=== PATIENT | female | born 1985 | race Two or more races ===

== ENCOUNTER 2022-03-27 04:23 | Inpatient (IN) ==
[2022-03-27] MEDS ORDERED: ePHEDrine 50 MG/ML VIAL IV PRN (04:35)
[2022-03-27] MEDS ORDERED: ONDANSETRON 4 MG/2 ML VIAL IV ONE (04:35)
[2022-03-27] MEDS ORDERED: diphenhydrAMINE 50 MG/1 ML VIAL IV PRN ×2 (04:35)
[2022-03-27] MEDS ORDERED: PROMETHAZINE 25 MG/1 ML VIAL IM ONE (04:35)
[2022-03-27] MEDS ORDERED: NALOXONE 0.4 MG/ML VIAL IV PRN (04:35)
[2022-03-27] MEDS ORDERED: LACTATED RINGERS 1,000 ML IV ONE (04:35)
[2022-03-27] MEDS ORDERED: hydrOXYzine HCL 25 MG/1 ML VIAL IM PRN (04:35)
[2022-03-27] MEDS ORDERED: TRANEXAMIC ACID 1,000 MG in SODIUM CHLORIDE 0.9% 100 ML IV PRN (04:36)
[2022-03-27] MEDS ORDERED: ONDANSETRON 4 MG/2 ML VIAL IV PRN (04:36)
[2022-03-27] MEDS ORDERED: METHYLERGONOVINE 0.2 MG/1 ML AMP IM PRN (04:36)
[2022-03-27] MEDS ORDERED: OXYTOCIN/LR 20 UNIT/1,000 ML BAG IV PRN (04:36)
[2022-03-27] MEDS ORDERED: miSOPROStoL 200 MCG TABLET RECTAL PRN (04:36)
[2022-03-27] MEDS ORDERED: CARBOPROST TROMETHAMINE 250 MCG/ML AMP IM PRN (04:36)
[2022-03-27] MEDS ORDERED: BUTORPHANOL 1 MG/ML VIAL IV PRN (04:36)
[2022-03-27] MEDS ORDERED: CITRIC ACID/SODIUM CITRATE 30 ML UDCUP ONE (04:38)
[2022-03-27] MEDS ORDERED: FAMOTIDINE 20 MG/2 ML VIAL IV ONE (04:40)
[2022-03-27] MEDS ORDERED: LACTATED RINGERS 1,000 ML IV SCH ×2 (05:00)
[2022-03-27] MEDS ORDERED: fentaNYL 2 MCG/ROPIV 0.2% EPID 100 ML EPIDURAL SCH (05:00)
[2022-03-27 05:05] LABS: Basophils % 0.2 % (0.0-0.8); Cord Venous Blood PCO2 39.1 MMHG; Cord Venous Blood PO2 19.2; Eosinophils # 0.1 10*3/uL (0.0-0.87); Eosinophils % 0.5 % (0.00-10.9); Hematocrit 37.6 VOL% (35.7-47.0); Immature Granulocytes % 0.5 %; Immature Granulocytes Absolute 0.05 #; Lymphocytes # 3.4 10*3/uL (1.4-4.0); Mean Corpuscular HGB Conc 34.6 GM/DL (32-36); Mean Corpuscular Volume 81.6 FL (87-102); Mean Platelet Volume 10.2 FL (9.6-12.0); Monocytes # 0.9 10*3/uL (0.11-0.8); Monocytes % 8.9 % (1.7-12.7); Neutrophils % 54.9 % (38.7-73.9); Platelet Count 187 T/CUMM (130-400); Red Blood Count 4.61 MC/CUMM (3.8-5.5); Red Cell Distribution Width 13.6 % (9.3-17.3); White Blood Count 9.7 T/CUMM (4-12)
[2022-03-27 05:24] LABS: Alanine Aminotransferase 19 U/L (13-56); Albumin 2.7 G/DL (3.4-5.0); Alkaline Phosphatase 97 U/L (45-117); Aspartate Amino Transferase 17 U/L (0-37); Bilirubin,Total < 0.39 MG/DL (0.20-1.00); Blood Urea Nitrogen 10 MG/DL (7-18); Carbon Dioxide 16 MMOL/L (21-32); Chloride 109 MMOL/L (98-107); Glucose 105 MG/DL (74-106); Osmolality,Calculated 275.5 MOS/KG (273-304); Potassium 3.6 MMOL/L (3.5-5.1); Sodium 139 MMOL/L (136-145); Total Protein 6.9 G/DL (6.4-8.2)
[2022-03-27 05:33] LABS: Mucus,Urine Occasional /LPF (Occasional); RBC,Urine 6 /HPF (0-4)
[2022-03-27 05:35] LABS: Bilirubin,Urine Negative (Negative); Blood, Urine Small mg/dL (Negative); Glucose,Urine (UA) Negative (Negative); Ketones,Urine 80 mg/dL (Negative); Nitrite,Urine Negative (Negative); Protein,Urine Negative (Negative); Urine Appearance Clear (Clear); Urine Color Yellow (Yellow); Urine Specific Gravity 1.025 (1.001-1.035); Urine Urobilinogen 0.2 eU/dL (<2.0)
[2022-03-27] MEDS ORDERED: BISACODYL 10 MG SUPP RECTAL PRN (05:43)
[2022-03-27] MEDS ORDERED: MEASLES/MUMPS/RUBELLA VACCINE 0.5 ML VIAL SUBCUT ONE (05:43)
[2022-03-27] MEDS ORDERED: OXYTOCIN/LR 20 UNIT/1,000 ML BAG IV ONE (05:43)
[2022-03-27] MEDS ORDERED: oxyCODONE/ACETAMINOPHEN 5-325 MG TABLET PO PRN (05:43)
[2022-03-27] MEDS ORDERED: ACETAMINOPHEN 325 MG TABLET PO PRN (05:43)
[2022-03-27] MEDS ORDERED: HYDROCORTISONE 2.5% RECTAL CREAM 30 GM TUBE TOP PRN (05:43)
[2022-03-27] MEDS ORDERED: WITCH HAZEL PADS 100/JAR TOP PRN (05:43)
[2022-03-27] MEDS ORDERED: RHO(D) IMMUNE GLOBULIN 300 MCG SYRINGE IM ONE (05:43)
[2022-03-27] MEDS ORDERED: BENZOCAINE 20%/MENTHOL 0.5% SPRAY 56 GM CAN TOP PRN (05:43)
[2022-03-27] MEDS ORDERED: LANOLIN 50% CREAM 0.3 OZ TUBE TOP PRN (05:43)
[2022-03-27] MEDS ORDERED: DIPH/TET/ACEL PERT BOOSTER VACCINE 0.5 ML VIAL IM ONE (05:43)
[2022-03-27] MEDS: DOCUSATE SODIUM 100 MG CAPSULE PO SCH (11:14)
[2022-03-27] MEDS: oxyCODONE/ACETAMINOPHEN 5-325 MG TABLET PO PRN (12:29)
[2022-03-27] MEDS: IBUPROFEN 800 MG TABLET PO PRN (12:30)
[2022-03-28] MEDS: IBUPROFEN 800 MG TABLET PO PRN ×4 (01:10→22:38)
[2022-03-28] MEDS: DOCUSATE SODIUM 100 MG CAPSULE PO SCH ×3 (01:17→21:02)
[2022-03-28] MEDS: oxyCODONE/ACETAMINOPHEN 5-325 MG TABLET PO PRN ×2 (02:39→08:55)
[2022-03-28 06:46] LABS: Basophils % 0.3 % (0.0-0.8); Eosinophils # 0.1 10*3/uL (0.0-0.87); Eosinophils % 1.1 % (0.00-10.9); Hematocrit 32.7 VOL% (35.7-47.0); Hemoglobin 11.1 GM/DL (12.0-16.0); Immature Granulocytes % 0.4 %; Immature Granulocytes Absolute 0.03 #; Lymphocytes # 1.6 10*3/uL (1.4-4.0); Lymphocytes % 22.2 % (21.3-54.2); Mean Corpuscular HGB Conc 33.9 GM/DL (32-36); Mean Corpuscular Volume 84.3 FL (87-102); Mean Platelet Volume 10.5 FL (9.6-12.0); Monocytes # 0.5 10*3/uL (0.11-0.8); Monocytes % 6.7 % (1.7-12.7); Neutrophils % 69.3 % (38.7-73.9); Platelet Count 136 T/CUMM (130-400); Red Blood Count 3.88 MC/CUMM (3.8-5.5); Red Cell Distribution Width 13.9 % (9.3-17.3); White Blood Count 7.3 T/CUMM (4-12)
[2022-03-28] MEDS: MULTIVITAMIN (PRENATAL) TABLET PO SCH (08:54)
[2022-03-29] MEDS: oxyCODONE/ACETAMINOPHEN 5-325 MG TABLET PO PRN (01:30)
[2022-03-29] MEDS: MULTIVITAMIN (PRENATAL) TABLET PO SCH (09:20)
[2022-03-29] MEDS: DOCUSATE SODIUM 100 MG CAPSULE PO SCH (09:20)
[2022-03-29] MEDS: IBUPROFEN 800 MG TABLET PO PRN (09:21)
[2022-03-29 12:38] VITALS: BP 116/59
== END 2022-03-29 14:05 | disposition home or self-care (01) | DRG 807 ==
LOC: N.LDOUT 04:23 → N.LD 04:25 → N.OB 12:11
PROVIDERS: ADMIT Obstetrics & Gynecology; ATTEND Obstetrics & Gynecology